=== PATIENT | female | born 1970 | race Hispanic/Latino ===

== ENCOUNTER 2018-04-03 08:06 | Outpatient (CLI) | payer BC | END 2018-04-03 08:07 | disposition home or self-care (01) | LOC: BICMAMMO 08:06 | PROVIDERS: ATTEND Family Medicine | DX: Z12.31 Encounter for screening mammogram for malignant neoplasm of breast (principal) | CPT/HCPCS: 77063; 77067 ==

== ENCOUNTER 2018-07-24 18:15 | Observation (INO) | payer BC ==
[2018-07-24] MEDS ORDERED: Nitroglycerin 0.4 MG TAB (25 Tab Bottle) ONE (18:39)
--- NOTE | 2018-07-24 19:16 | RAD ---
CHEST ONE VIEW: 07/24/18 HISTORY: Syncope. COMPARISON: 02/04/11. FINDINGS: The cardiac silhouette is magnified by projection. Pulmonary vasculature upper limits of normal. Medi astinum is midline. No lobar consolidation or evidence of pneumothorax. The quality assurance monitor chassis leads ove rlie the chest. IMPRESSION: No active cardiopulmonary abnormalities are demonstrated. POS: [facility]
[2018-07-24 19:18] LABS: Bilirubin Negative (Negative); Blood, Urine Trace (Negative); Clarity CLOUDY (Clear); Glucose, Urine (Dipstick) Negative (Negative); Leukocyte Negative (Negative); Nitrite Negative (Negative); Protein, Urine (Dipstick) Negative (Neg-Trace); Specific Gravity, Urine 1.009 (1.002-1.036); pH, Urine 7.5 (5.0-9.0)
[2018-07-24 19:21] LABS: Bacteria/HPF None Seen HPF (None Seen); Hyaline Casts/LPF 0-3 HYALINE CAST LPF (0-3 Hyaline); Pathc Cast-AUWi Flag 0.14 (0-2.49); RBC/HPF 0-3 HPF (0-3); Squamous Epithelial 0-3 HPF (0-3); WBC/HPF 0-3 HPF (0-3)
[2018-07-24 19:23] LABS: Pregnancy Test - Urine (BHCG) Negative (Negative); Pregu Control Background? CLEAR/WHITE (CLR/WHITE); Pregu Control Bar Appear? YES (CONTROL BAR); Specific Gravity 1.009 (1.002-1.036)
[2018-07-24 19:37] LABS: CKMB 2.3 ng/mL (0-6.6)
[2018-07-24 19:38] LABS: #Basophils 0.1 thou/uL (0.0-0.2); #Eosinphils 0.1 thou/uL (0.0-0.7); #Lymphocytes 2.5 thou/uL (1.20-3.40); #Monocytes 0.8 thou/uL (0.11-0.59); #Neutrophils 5.7 thou/uL (1.40-6.50); %Basophils 0.6 % (0.0-1.0); %Eosinophils 0.8 % (0.0-10.0); %Lymphocytes 27.2 % (21.0-51.0); %Monocytes 8.6 % (0.0-10.0); %Neutrophils 62.7 % (42.0-75.0); Hemoglobin 12.6 g/dL (12.0-16.0); Mean Corpuscular HGB CONC 34.9 g/dL (32.0-36.0); Mean Corpuscular Hemoglobin 32.5 pg (27.0-31.0); Mean Corpuscular Volume 93.1 fL (78.0-98.0); Mean Platelet Volume 7.4 fL (7.4-10.4); Platelet Count 184 thou/uL (130-400); RBC Distribution Width 12.1 % (11.5-14.5); Red Blood Cell (RBC) Count 3.87 mill/uL (4.20-5.40); White Blood Cell (WBC) Count 9.1 thou/uL (4.8-10.8)
[2018-07-24 19:53] LABS: ALT (SGPT) 21 U/L (8-55); AST (SGOT) 23 U/L (5-34); Albumin 3.6 g/dL (3.5-5.0); Alkaline Phosphatase 106 U/L (40-150); Anion Gap 10 mmol/L (10-20); BUN (Urea Nitrogen) 9 mg/dL (7.0-18.7); Bilirubin, Total 0.3 mg/dL (0.2-1.2); CK (CPK) 164 U/L (29-168); Calc. Creatinine Clearance 0 mL/min (70-130); Calcium 8.6 mg/dL (7.8-10.44); Carbon Dioxide 30 mmol/L (22-29); Chloride 104 mmol/L (98-107); Estimated GFR-MDRD 85; Globulin 3.3 g/dL (2.4-3.5); Glucose 103 mg/dL (70-105); Potassium 3.1 mmol/L (3.5-5.1); Protein, Total 6.9 g/dL (6.0-8.3)
[2018-07-24 19:57] LABS: Sodium 141 mmol/L (136-145)
[2018-07-24] MEDS ORDERED: Potassium Chloride 20 MEQ TAB ONE ×2 (21:06→21:19)
[2018-07-24] MEDS ORDERED: Potassium Chloride 40 MEQ in Sodium Chloride 0.9% 250 ML 250 ML IVPB SCH (21:30)
[2018-07-24 22:37] LABS: Troponin I 0.124 ng/mL (< 0.028)
[2018-07-25 00:07] VITALS: BMI 36.6
[2018-07-25] MEDS ORDERED: cloNIDine 0.1 MG TAB PO PRN (08:37)
[2018-07-25] MEDS ORDERED: Senokot 8.6 MG TAB PO PRN (08:37)
[2018-07-25] MEDS ORDERED: Loratadine 10 MG TAB PO PRN (08:37)
[2018-07-25] MEDS ORDERED: hydrALAZINE 20 MG/ML VIAL SLOW IVP PRN (08:37)
[2018-07-25] MEDS ORDERED: Nitroglycerin 0.4 MG TAB (25 Tab Bottle) SL PRN (08:37)
[2018-07-25] MEDS ORDERED: Bisacodyl 5 MG TAB PO PRN (08:37)
[2018-07-25] MEDS ORDERED: Calcium Carbonate 500 MG ChewTAB PO PRN (08:37)
[2018-07-25] MEDS ORDERED: Lorazepam 1 MG TAB PO PRN (08:37)
[2018-07-25] MEDS ORDERED: Benzonatate 100 MG CAP PO PRN (08:37)
[2018-07-25] MEDS ORDERED: Mag-Al 1200 mg/1200 mg/30 ML UDCUP PO PRN (08:37)
[2018-07-25] MEDS ORDERED: Ondansetron HCl/PF 4 MG/2 ML Vial IVP PRN (08:37)
[2018-07-25] MEDS: Aspirin 325 mg Enteric Coated Tablet PO SCH (09:47)
[2018-07-25] MEDS: Acetaminophen 325 MG TAB PO PRN ×2 (09:47→19:34)
[2018-07-25] MEDS: Enoxaparin Sodium 40 MG/0.4 ML SYRINGE SC SCH (09:48)
--- NOTE | 2018-07-25 12:11 | ULT ---
ULTRASOUND CAROTID DOPPLER: HISTORY: Syncope. COMPARISON: None. FINDINGS: Real-time, chowdhury scale, color flow, and spectral analysis of the extracranial carotid and vertebral ar teries is performed. There is antegrade flow of both vertebral arteries. No elevated peak systolic velocities within the internal carotid arteries. Right ICA/CCA ratio is 0.89 and left ICA/CCA ratio is 0.88. IMPRESSION: No hemodynamically significant stenosis. POS: [facility]
--- NOTE | 2018-07-25 12:17 | HP ---
DATE OF ADMISSION: 07/25/2018 PRIMARY CARE PHYSICIAN: Alton Carmen MD CHIEF COMPLAINT: Dizziness and passing out. HISTORY OF PRESENT ILLNESS: Ms. Ashton is a pleasant 47-year-old female with past medical history of hypertension who presented to the emergency room yesterday evening with the above-mentioned complain t. History is mainly obtained by the patient herself. Electronic medical records have been reviewed . Ms. Ashton reports that she has been otherwise healthy and has no recent illnesses. Yesterday while she was going to prepare food for her family, she felt dizzy, lightheaded with the chest pressure and some shortness of breath. She tried to reach the couch to lay down, but she kind of passed out and was helped to the floor by her granddaughter. Her granddaughter later reported that she had some candice ky movements on one side of her body. She denies any history of any seizures in the past. She denie s any history of heart disease or stroke for herself. She does have family history of heart disease in multiple uncles and aunts. She denies any recent illnesses. She denies any nausea, vomiting, or diarrhea. She denies any extre mity swelling. She denies any orthopnea or PND. She is compliant with her medications and takes pro pranolol every day, but she has not taken it yesterday morning before this episode. Upon presentation to the emergency room, she was hemodynamically stable with the blood pressure 161/7 2 and a heart rate of 68, saturating 98% on room air. Her initial workup included a 12-lead EKG, whi ch showed sinus bradycardia at 55 beats per minute without any specific ST or T-wave changes. A ches t x-ray was done, which was unremarkable. Her blood work was reviewed and showed potassium of 3.1 an d cardiac enzymes that were within normal range. Urinalysis showed trace blood and urine t est was negative. In the emergency room, she did receive potassium chloride, magnesium, aspirin 81 mg and sublingual ni troglycerin and is now being admitted for further workup. Since admission, her cardiac enzymes bumped up to as high as 0.140. PAST MEDICAL HISTORY: Hypertension. PAST SURGICAL HISTORY: Hysterectomy. 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 No history of drug, tobacco or alcohol abuse. She is mar ried and lives with the family. FAMILY HISTORY: Her mother is in the room at bedside with her. FAMILY HISTORY: Significant for coronary artery disease with multiple aunts and uncles requiring hea rt surgeries as well. No history of stroke in the family. ALLERGIES: PENICILLIN. CURRENT MEDICATIONS: Propranolol 40 mg b.i.d., estradiol 0.5 mg daily, fluoxetine 20 mg daily. REVIEW OF SYSTEMS: A 12-point review of systems is done, it is negative except for those mentioned i n the history and physical. LABORATORY DATA: CBC is unremarkable. Serum chemistry shows potassium of 3.1, bicarbonate of 30. T roponin initially 0.010, then 0.124, then 0.140. Urinalysis negative for bacteria or wbc's. I have ordered a D-dimer and it is within normal range at 0.29. Chest x-ray by my review is negative for an y evidence of pulmonary edema, infiltrate or effusion. A 12-lead EKG by my review shows sinus bradyc ardia without any acute ST or T-wave changes. PHYSICAL EXAMINATION: VITAL SIGNS: Most recent vital signs, temperature 98.3, pulse of 61, respirations 16, saturating 95% on room air, blood pressure 125/60. GENERAL: No acute distress, awake, alert, oriented x3. HEENT: Mucous membrane is moist and pink. No oropharyngeal exudate or erythema. Head is normocepha lic, atraumatic. Pupils equal, reactive to light and accommodation. Extraocular movement intact. NECK: Supple without any lymphadenopathy, JVD or bruit. CHEST: Clear to auscultation without any wheezing, rales or rhonchi. CARDIOVASCULAR: Rate and rhythm is regular without any murmur, rubs or gallops. ABDOMEN: Soft, nontender, nondistended, positive bowel sounds. EXTREMITIES: Free of any cyanosis, clubbing, or edema. NEUROLOGIC: Nonfocal. SKIN: Free of any rashes or bruises. PSYCHIATRIC: Normal affect. IMPRESSION AND PLAN: 1. Syncope. No clear etiology is evident at this time. The patient does not have any evidence of i nfection. She is not hypotensive. She does not clinically appear to have a pulmonary embolism and D -dimer is also unremarkable. She does have elevated and trending upwards. Cardiac enzymes. So for this reason, we will obtain a transthoracic echocardiogram and consult Cardiology. She does have sig nificant family history of coronary artery disease. We will also check orthostatics, as the patient is on propranolol, to rule out orthostatic hypotension. We will also obtain a carotid Doppler ultras ound to rule out posterior basilar circulation problems. She will be admitted on telemetry unit to r ule out any arrhythmias. The patient's symptoms are not very consistent with a seizure, but that is also in the differential diagnosis at this time as she gave the history of some jerky movements of on e side of the body. Please note that the patient did not hit her head when she went down and was hel ped to the ground by her family member. We will check a TSH as well. 2. History of hypertension, currently well controlled. Beta magaly is held in case she needs to un dergo cardiac stress testing later. 3. Elevated cardiac enzymes, likely demand ischemia from the syncopal episode. We will repeat the t roponin and perform a transthoracic echocardiogram for now. We will start her on full dose aspirin a s of now and check a lipid panel as well. 4. Hypokalemia. Her potassium has been replaced. We will recheck in the morning. 5. Obesity with a BMI of 36.6. 6. Deep venous thrombosis and gastrointestinal prophylaxis. 7. Code status: FULL CODE. Discussed with the patient. DISPOSITION: Ms. Ashton is currently being admitted to the hospital for syncopal episode and elevate d cardiac enzymes. Further management will depend upon her clinical course. Currently, she is on ob servation status. Awaiting Cardiology consultation.
[2018-07-25 12:24] LABS: Cardiac Risk 3.4 (Less than 4.5)
[2018-07-25 12:36] LABS: Troponin I 0.096 ng/mL (< 0.028)
--- NOTE | 2018-07-25 13:10 | CON ---
DATE OF CONSULTATION: 07/25/2018 REASON FOR CONSULTATION: Syncope. HISTORY OF PRESENT ILLNESS: Ms. Ashton is a very pleasant 47-year-old female who comes to [facility] for a spell she had earlier today. She was at home, she stood up, felt dizzy, lightheade d, was not feeling well and felt warm all over. She wanted to go to the bed and she just remembers w aking up on the floor. Her daughter was with her and daughter gives an account of her go into her ro om being looking confused, not being able to get on the bed and then when she was on the floor, her l eft side of her body was shaking. Per Mrs. Ashton' report when she woke up, she was confused for abo ut 10-15 minutes afterwards. Once she got to the hospital where she was driven in, she was feeling b ack to normal. She has had several episodes of anxiety in the past and has had anxiety attacks befor e. She stated that she feels this is similar, but a little more intense and different than previous one. She denies any history of seizures in the past as well. PAST MEDICAL HISTORY: Hypertension. PAST SURGICAL HISTORY: Hysterectomy. SOCIAL HISTORY: No alcohol, tobacco, or drugs. She is single and lives with her three kids who are adults already. FAMILY HISTORY: None in her immediate family, only aunts and uncles. OUTPATIENT MEDICATIONS: Include, 1. Propranolol 40 mg b.i.d. 2. Estradiol. 3. Fluoxetine 20 mg a day. ALLERGIES: PENICILLIN. REVIEW OF SYSTEMS: A 12-point review of systems was done and is all negative unless stated in the hi story of present illness. PHYSICAL EXAMINATION: VITAL SIGNS: Temperature 98.3, pulse 61, respiration rate 16, satting 95% on room air, blood pressur e 125/60. GENERAL: Awake, alert, oriented x3, in no distress. HEENT: Normocephalic, atraumatic. NECK: Supple. LUNGS: Lungs are clear. CARDIOVASCULAR: S1, S2, no S3, S4, no murmurs or rubs. ABDOMEN: Soft, positive bowel sounds. EXTREMITIES: No edema. SKIN: Warm and dry. LABORATORY WORK: Reviewed. CBC is unremarkable. Coags, D-dimer is normal. Chemistry only remarkab le for potassium was 3.1, carbon dioxide of 30, otherwise, negative. Her troponin was 0.12, 0.14, an d 0.09. Triglycerides of 119, cholesterol 174, LDL of 99, HDL 51. Normal TSH. UA was negative. Pr egnancy test was negative. Carotid Doppler was unremarkable. Chest x-ray was unremarkable. ASSESSMENT AND PLAN: 1. Syncope: It sounds like it was more of a spell. I would be more concerned about her having had a seizure versus a pseudoseizure and just this be some sort of panic attack. I will make sure that h er heart is normal. We will get an echocardiogram and will get a nuclear stress test. I will not pu t on a treadmill as if she has another episode she may fall, so we will do nuclear stress test. 2. Mildly elevated troponins: If this was in fact a seizure, this can make her troponin be in the i ntermittent range. As above, we will further risk stratify. 3. Possible seizures: I would recommend Neurology consultation to see what they think about this ep isode. Thank you for letting us participate in the care of your patient. We will follow.
[2018-07-25] MEDS ORDERED: ADENOSINE 60 MG/20 ML VIAL ONE (13:17)
--- NOTE | 2018-07-25 17:10 | NM ---
MYOCARDIAL PERFUSION STUDY: 07/25/18 HISTORY: Chest pain and hypertension. RADIOPHARMACEUTICALS: 28.5 millicuries technetium 99m Sestamibi, IV at stress and 11 millicuries technetium 99m Sestamibi, IV at rest. MEDICATIONS: 53.2 mg (17.7 mL) Adenosine, IV. FINDINGS: There is normal uptake and distribution of radiotracer seen throughout the left ventricular myocardiu m. No reversible defect is seen between the stress and resting acquisitions. Bowel activity is adjace nt to the inferior wall on the stress acquisition. Gated images show ventricular wall motion and wall thickening. The calculated left ventricular ejection fraction is 75%. The LVEF on prior study in 200 9 was 69%. IMPRESSION: 1. Normal myocardial perfusion study without evidence of a significant reversible defect seen to suggest ischemia. 2. Normal LV function with normal LVEF of 75%. POS: [facility]
[2018-07-25] MEDS: Propranolol 40 MG TAB PO SCH (21:18)
--- NOTE | 2018-07-26 00:08 | CON ---
DATE OF CONSULTATION: 07/25/2018 REFERRING PROVIDER: Dr. Martha Aldana. REASON FOR CONSULTATION: Syncope. HISTORY OF PRESENT ILLNESS: Ms. Ashton is a pleasant 47-year-old female who has been consulted for evaluation of syncopal event. Patient reports that yesterday she was in her normal state of health. She had gone to work and at that time, she completed her work without any difficulty. After work, she had come back home and had gone to sleep. After she got up and was going to the kitchen to get some water to drink, she noticed lightheadedness, dizziness, vertigo-type sensation, and chest pressure and difficulty with breathing. She had gone to the kitchen to drink water and was coming back from the kitchen to the bedroom. At that time, she continued to have the dizziness and vertigo-type sensation and felt like she was going to pass out. By the time she made it to her room, she is not sure how she fell down onto the floor, but she thinks that she may have passed out. Her daughter had found her on the floor and at that time, she was yelling her name. Patient did recognize that her daughter was yelling her name and telling her that they are going to the ER and she is not changing her clothes. She knew her surroundings but she was just not able to converse with her daughter at that time. Her daughter at that point had noticed some shaking in her left arm. There was no stiffness. There was no tongue biting. There was no loss of bladder control with this episode. She started improving with her symptoms after she presented to the emergency room at [facility]. She currently denies any headache, chest pain, palpitation, nausea, vomiting, abdominal pain, numbness, tingling, or weakness. She has no prior history of seizure disorder. No prior history of head trauma. No prior history of CATTLE DRIVER infection and no family history of seizure disorder. PAST MEDICAL HISTORY: Significant for anxiety and hypertension. PAST SURGICAL HISTORY: Significant for hysterectomy. 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 She denies smoking, alcohol use, or illicit drug use. She is and lives with her family. FAMILY HISTORY: Noncontributory. CURRENT MEDICATIONS: Please review MAR. ALLERGIES: Include PENICILLIN. REVIEW OF SYSTEMS: As mentioned in the HPI, otherwise negative. PHYSICAL EXAMINATION: VITAL SIGNS: Blood pressure of 161/72, pulse of 55, temperature of 97.4, respirations of 16, O2 sats of 96% on room air. GENERAL: Well-developed, well-nourished female in no apparent distress. RESPIRATORY: Clear to auscultation bilaterally. CARDIOVASCULAR: Regular rate and rhythm. NEUROLOGIC: Mental status: Patient is awake, alert, oriented x3. Speech and language: Fluent speech. Cranial nerves: Pupils are 3 mm and reactive. Visual maya are intact. Extraocular muscle movements are intact. No nystagmus noted. Face is symmetric. Tongue and uvula are midline. Motor exam showed normal tone and bulk with 5/5 strength in both upper and lower extremities. Sensory: Sensation is intact and symmetric. Deep tendon reflexes are 2+ reflexes in both upper and lower extremities. Babinski: Plantar responses flexion bilaterally. Coordination intact to finger-nose- finger and finger tapping bilaterally. LABORATORY DATA: Reviewed, which included CBC, CMP, lipid profile, troponin, CK -MB, which is significant for potassium of 3.1, troponin of 0.14. Otherwise, unremarkable. IMPRESSION: Syncope. ASSESSMENT AND PLAN: Ms. Ashton is a pleasant 47-year-old female who presented with the episode of syncope. Based on the description of the spell, this is unlikely to be a seizure related event. In my opinion, this may have been vasovagal syncope versus cardiogenic syncope. Another possibility is benign positional vertigo. I would recommend obtaining MRI brain with and without contrast and EEG in the morning. If they are normal, patient is okay to be discharged to home with outpatient followup along with one of the neurology provider in the clinic. Since this is her first spell, I would not recommend starting her on any antiepileptic medication. Also, I do not think this is a seizure episode that warrants antiepileptic medication. Thank you for consultation. LINDSAY
[2018-07-26] MEDS ORDERED: FLUoxetine HCl 20 MG CAP PO SCH (09:00)
[2018-07-26] MEDS ORDERED: Estradiol 1 MG TAB PO SCH (09:00)
[2018-07-26] MEDS: Enoxaparin Sodium 40 MG/0.4 ML SYRINGE SC SCH (09:29)
[2018-07-26] MEDS: Aspirin 325 mg Enteric Coated Tablet PO SCH (09:29)
[2018-07-26] MEDS: Propranolol 40 MG TAB PO SCH (09:30)
[2018-07-26] MEDS ORDERED: Gadobenate Dimeglumine 529 MG/1 ML (20ML VIAL) ONE (10:03)
--- NOTE | 2018-07-26 11:36 | PDOC.CTH ---
Cardiology Progress Note - Subjective She is doing well. Stress test and echo unremarkable. - Objective Vital Signs Temp Pulse Resp BP BP Pulse Ox 07/26/18 08:00 97.7 F 55 L 13 131/77 95 07/26/18 03:50 98.1 F 57 L 16 121/66 96 Admit Weight 206 lb 11.2 oz Weight 203 lb 14.4 oz 07/25/18 07/26/18 07/27/18 06:59 06:59 06:59 Intake Total 360 2019 Output Total 1000 Balance -640 2019 - Physical Examination General/Neuro: alert & oriented x3, NAD Neck: no JVD present Lungs: CTA, unlabored respirations Heart: RRR Abdomen: NT/ND Extremities: other: (no edema) - Telemetry Telemetry Rhythm: NSR - Labs Result Diagrams: 07/24/18 19:31 07/24/18 19:31 Troponin/CKMB CK-MB (CK-2) 2.3 ng/mL (0-6.6) 07/24/18 18:58 Troponin I 0.096 ng/mL (< 0.028) H 07/25/18 11:41 - Assessment/Plan 1. Syncope 2. Normal stress test and echo PLAN: - Possibly vasovagal. - May discharge home from cardiac perspective. - Will follow up in the office in 1 month - Will need 30 day monitoring as an outpatient. - Cass Cota
--- NOTE | 2018-07-26 11:52 | MRI ---
MRI BRAIN WITH AND WITHOUT IV CONTRAST: Date: 07/26/18 HISTORY: Syncope. FINDINGS: No evidence of infarct, hemorrhage, mass, midline shift, or abnormal extra-axial fluid collections ar e seen. The ventricular size is normal and the basilar cisterns are patent. No abnormal postcontrast enhancement is noted. No restricted diffusion is noted. No significant signal abnormalities are seen on the highly sensitive FLAIR images. No blood products are noted on the gradient echo sequences. The re is mild mucosal disease in the paranasal sinuses. IMPRESSION: Normal exam. POS: [facility]
[2018-07-26 15:54] VITALS: BP 123/67; TEMP 98.3
--- NOTE | 2018-07-26 23:15 | DIS ---
DATE OF ADMISSION: 07/25/2018 DATE OF DISCHARGE: 07/26/2018 CONDITION AT THE TIME OF DISCHARGE: Stable and improved. DISCHARGE DIAGNOSES: 1. Near syncope versus syncope likely a vasovagal episode. 2. History of hypertension. PRIMARY CARE PHYSICIAN: Dr. Alton Carmen. DISCHARGE MEDICATIONS: Remain the same as admission medication. Please see admission H&P, but mainl y include propranolol 40 mg p.o. b.i.d., fluoxetine 20 mg daily, estradiol 2 mg daily. PROCEDURES DONE IN THE HOSPITAL: Carotid Doppler ultrasound, which is unremarkable. Nuclear medicin e stress test which is negative for any reversible or fixed defects. EF estimated at 75%. PROCEDURES: 1. Transthoracic echocardiogram, which is unremarkable. EF estimated at 60-65% and normal diastolic function. 2. MRI of the brain which is negative for any acute changes of chronic changes. 3. EEG which is negative for any seizure activity. INHOUSE CONSULTATIONS: 1. Cardiology, Dr. Braga. 2. Neurology, Dr. Mey Rose. HISTORY OF PRESENT ILLNESS: Ms. Ashton is a 47-year-old female with past medical history of hyperten cash on propranolol, came into the emergency room with complaints of syncope. Extensive workup was i nitiated as well. She was hemodynamically stable at the time of presentation and orthostatics were c hecked and was positive for more than 10 mmHg drop in the diastolic blood pressure, otherwise unremar kable. Please see admission history and physical for further details. HOSPITAL COURSE: The patient underwent cardiac testing as she had some bump in her troponin indeterm inate range. Echo was done and Cardiology was consulted. Dr. Braga saw the patient and recommended a stress test which was also done. Both the echo stress test were unremarkable. Cardiac monitoring was done which was unremarkable without any arrhythmias. She was somewhat bradycardic, but proprano lol was restarted and she tolerated it very well without any significant changes to her heart rate. Cardiac etiology was ruled out. The patient also gave some history of some jerkiness of her one side before the onset of syncope, so seizures were entertained. Dr. Rose saw the patient for Neurology department and she underwent an EE G and MRI of the brain. Once again, both were unremarkable. As of this morning, extensive cardiac and neurological workup is negative, and the likely diagnosis i s vasovagal episodes. I have instructed her to follow up with her primary care physician for possibl y changing her propranolol to an alternative non beta magaly or newer beta blockers given her bradyc ardia which might be contributing to some of her symptoms. At this time, she is asymptomatic and med ication changes were avoided. She was seen and examined prior to discharge. PHYSICAL EXAMINATION: VITAL SIGNS: Temperature 97.7, pulse of 59, respirations 12, and saturating 96% on room air, blood p ressure 120/60. GENERAL: No acute distress, awake, alert, and oriented x3. CHEST: Clear to auscultation without any wheezing, rales or rhonchi. The patient denies any new complaints or new symptoms. Discharge plan was discussed with the patient who verbalized understanding.
--- NOTE | 2018-07-27 10:29 | EEG ---
Referring Physician: DR. Apolonia SAMUEL EEG # [id number] TEST TYPE: ROUTINE PORTABLE INPATIENT DATE OF EEG BEING DONE: 07/26/18 REASON FOR EEG: SYNCOPE EEG DESCRIPTION: This is a 21 channel digital EEG recording. Electrodes are placed using the international 10-20 electrode placement system. The background rhythm is predominately 8-9 hertz, medium amplitude Alpha rhythm. HYPERVENTILATION: Showed no effect. PHOTIC STIMULATION: Showed no effect. There are periods of drowsiness with 6-7 hertz Theta rhythm. There are no epileptiform discharges, sharp transients or asymmetry noted. EKG LEAD: Shows 55 beats per minute, regular rhythm. IMPRESSION: THIS IS A NORMAL AWAKE AND DROWSY EEG. Project Design Engineer: nilo Apprenticeship Representative: [email or web address]
== END 2018-07-26 16:15 | disposition home or self-care (01) ==
LOC: ERS 18:15 → 2SW 23:27
PROVIDERS: ADMIT Hospitalist; ATTEND Hospitalist
DX: R55 Syncope and collapse (principal); I10 Essential (primary) hypertension; Z88.0 Allergy status to penicillin; Z79.899 Other long term (current) drug therapy
CPT/HCPCS: 36415; 70553; 71045; 78452; 80053; 80061; 81003; 81015; 81025; 82550; 82553; 84443; 84484; 85025; 85379; 93005; 93017; 93306; 93880; 95816; 95819; 96361; 96365; 96366; 96372; A9500; A9579; G0378; J0153; J1650; J3475; J3480; J7050

== ENCOUNTER 2019-04-10 08:04 | Outpatient (CLI) | payer BC ==
--- NOTE | 2019-04-10 08:46 | MMO ---
Bilateral MAMMO Bilat Screen [facility]. CLINICAL HISTORY: Patient is 48 years old and is seen for screening. The patient has no family history of breast cancer. The patient has no personal history of cancer. VIEWS: The views performed were: bilateral craniocaudal with tomosynthesis; bilateral mediolateral oblique with tomosynthesis; and bilateral exaggerated craniocaudal. FILMS COMPARED: The present examination has been compared to prior imaging studies performed at [facility] on 09/26/2012, 10/03/2012, 10/03/2014, 07/19/2016 and 04/03/2018. MAMMOGRAM FINDINGS: There are scattered fibroglandular densities. There are no suspicious masses, suspicious calcifications, or new areas of architectural distortion. IMPRESSION: THERE IS NO MAMMOGRAPHIC EVIDENCE OF MALIGNANCY. A ROUTINE FOLLOW-UP MAMMOGRAM IN 1 YEAR IS RECOMMENDED. THE RESULTS OF THIS EXAM WERE SENT TO THE PATIENT. ACR BI-RADS Category 1 - Negative MAMMOGRAPHY NOTE: 1. A negative mammogram report should not delay a biopsy if a dominant of clinically suspicious mass is present. 2. Approximately 10% to 15% of breast cancers are not detected by mammography. 3. Adenosis and dense breasts may obscure an underlying neoplasm.
== END 2019-04-10 08:05 | disposition home or self-care (01) ==
LOC: BICMAMMO 08:04
PROVIDERS: ATTEND Family Medicine
DX: Z12.31 Encounter for screening mammogram for malignant neoplasm of breast (principal)
CPT/HCPCS: 77063; 77067

== ENCOUNTER 2021-01-05 11:13 | Outpatient (CLI) | payer BC ==
--- NOTE | 2021-01-05 13:29 | MMO ---
Bilateral MAMMO Bilat Screen [facility]. CLINICAL HISTORY: Patient is 50 years old and is seen for screening. The patient has no family history of breast cancer. The patient has no personal history of cancer. VIEWS: The views performed were: bilateral craniocaudal with tomosynthesis; bilateral mediolateral oblique with tomosynthesis; and right exaggerated craniocaudal. FILMS COMPARED: The present examination has been compared to prior imaging studies performed at [facility] on 10/03/2014, 07/19/2016, 04/03/2018 and 04/10/2019. This study has been interpreted with the assistance of computer-aided detection. MAMMOGRAM FINDINGS: There are scattered fibroglandular densities. There are no suspicious masses, suspicious calcifications, or new areas of architectural distortion. IMPRESSION: THERE IS NO MAMMOGRAPHIC EVIDENCE OF MALIGNANCY. A ROUTINE FOLLOW-UP MAMMOGRAM IN 1 YEAR IS RECOMMENDED. THE RESULTS OF THIS EXAM WERE SENT TO THE PATIENT. ACR BI-RADS Category 1 - Negative MAMMOGRAPHY NOTE: 1. A negative mammogram report should not delay a biopsy if a dominant of clinically suspicious mass is present. 2. Approximately 10% to 15% of breast cancers are not detected by mammography. 3. Adenosis and dense breasts may obscure an underlying neoplasm. Reported by: ADELIA MORALEZ MD Electonically Signed: [id number]
== END 2021-01-05 11:14 | disposition home or self-care (01) ==
LOC: BICMAMMO 11:13
PROVIDERS: ATTEND Family Medicine
DX: Z12.31 Encounter for screening mammogram for malignant neoplasm of breast (principal)
CPT/HCPCS: 77063; 77067

== ENCOUNTER 2023-06-03 00:42 | Emergency (ER) | payer BC ==
[2023-06-03 01:54] LABS: #Eosinphils 0.1 thou/uL (0.0-0.7); #Monocytes 0.5 thou/uL (0.11-0.59); %Basophils 0.2 % (0.0-1.0); %Eosinophils 0.9 % (0.0-10.0); %Monocytes 6.6 % (0.0-10.0); %Neutrophils 73.1 % (42.0-75.0); Hemoglobin 12.9 g/dL (12.0-16.0); Mean Corpuscular HGB CONC 34.1 g/dL (32.0-36.0); Mean Corpuscular Hemoglobin 31.2 pg (27.0-31.0); Mean Corpuscular Volume 91.5 fl (78.0-98.0); Mean Platelet Volume 10.1 fL (7.4-10.4); Platelet Count 190 10x3/uL (130-400); Red Blood Cell (RBC) Count 4.13 mill/uL (4.20-5.40); White Blood Cell (WBC) Count 8.2 10x3/uL (4.8-10.8)
[2023-06-03 02:18] LABS: ALT (SGPT) 19 U/L (8-55); AST (SGOT) 22 U/L (5-34); Alkaline Phosphatase 120 U/L (40-110); Anion Gap 13 mmol/L (10-20); BUN (Urea Nitrogen) 10 mg/dL (9.8-20.1); Bilirubin, Total 0.5 mg/dL (0.2-1.2); Calc. Creatinine Clearance 0 mL/min (70-130); Calcium 9.2 mg/dL (7.8-10.44); Carbon Dioxide 25 mmol/L (22-29); Chloride 99 mmol/L (98-107); Estimated GFR 92; Globulin 3.9 g/dL (2.4-3.5); Glucose 165 mg/dL (70-105); Protein, Total 7.9 g/dL (6.0-8.3); Sodium 134 mmol/L (136-145)
[2023-06-03] MEDS ORDERED: Ondansetron PF 4 MG/2 ML Vial ONE (02:18)
[2023-06-03] MEDS ORDERED: Potassium Chloride 20 MEQ TAB ONE (03:46)
== END 2023-06-03 06:16 | disposition home or self-care (01) ==
LOC: ERS 00:42
DX: R06.02 Shortness of breath (principal); R07.9 Chest pain, unspecified; I10 Essential (primary) hypertension; E78.5 Hyperlipidemia, unspecified
CPT/HCPCS: 36415; 71045; 80053; 84484; 85025; 85379; 93005; 94760; 96374; J2405

== ENCOUNTER 2023-09-03 17:00 | Outpatient (CLI) | payer BC | END 2023-09-03 17:01 | disposition home or self-care (01) | LOC: SLEEPLAB 17:00 | PROVIDERS: ATTEND Family Medicine | DX: G47.33 Obstructive sleep apnea (adult) (pediatric) (principal); F32.A Depression, unspecified; E66.9 Obesity, unspecified; R06.83 Snoring; R51.9 Headache, unspecified; I10 Essential (primary) hypertension; R53.83 Other fatigue; Z68.37 Body mass index [BMI] 37.0-37.9, adult | CPT/HCPCS: 95810 ==

== ENCOUNTER 2024-09-02 08:02 | Outpatient (CLI) | payer BC | END 2024-09-02 08:03 | disposition home or self-care (01) | LOC: BICMAMMO 08:02 | PROVIDERS: ATTEND Family Medicine | DX: Z12.31 Encounter for screening mammogram for malignant neoplasm of breast (principal) | CPT/HCPCS: 77063; 77067 ==